=== PATIENT | male | born 1975 | race Caucasian/White ===

== ENCOUNTER → 2023-08-05 | Outpatient (REF) | payer OTHER ==
[2023-08-05 18:40] LABS: CREATININE, URINE 49.8 MG/DL; MAU/CREAT RATIO 58.2 MCG/MG (0.0-30.0)
== END ==
LOC: M LAB REF 17:28
PROVIDERS: ATTEND Nurse Practitioner Family
DX: E11.65 Type 2 diabetes mellitus with hyperglycemia (principal)

== ENCOUNTER 2023-11-09 12:52 | Emergency (ER) | payer OTHER ==
[~2023-11-09] VITALS: Ht 160 cm; Wt 99.1 kg
[2023-11-09] MEDS ORDERED: HYDR-3716 (13:27)
[2023-11-09] MEDS ORDERED: TRUL0.5I (13:27)
[2023-11-09] MEDS ORDERED: METF-838 (13:27)
[2023-11-09] MEDS ORDERED: OMEG1CAP85 (13:27)
[2023-11-09 16:25] VITALS: TEMP 98.4
[2023-11-09 17:02] LABS: BASO % 0.6 % (0.0-1.0); EOS # 0.1 10^3/uL (0.0-0.5); EOS % 1.5 % (0.0-3.0); HEMATOCRIT 48.1 % (42.0-52.0); LYMPH # 2.4 10^3/uL (1.5-5.0); LYMPH % 34.5 % (24.0-44.0); MEAN CORPUSCULAR HGB CONC 35.3 g/dl (32.0-36.5); MEAN CORPUSCULAR VOLUME 84.8 fl (80.0-96.0); MONO # 0.5 10^3/uL (0.0-0.8); MONO % 7.7 % (2.0-8.0); NEUTROPHILS # 3.8 10^3/uL (1.5-8.5); NEUTROPHILS % 55.4 % (36.0-66.0); PLATELET COUNT, AUTOMATED 174 10^3/uL (150-450); RED BLOOD COUNT 5.67 10^6/uL (4.30-6.10); WHITE BLOOD COUNT 6.9 10^3/uL (4.0-10.0)
[2023-11-09 17:22] LABS: LIPASE 38 U/L (12-53)
[2023-11-09 17:25] LABS: ALKALINE PHOSPHATASE 124 U/L (46-116); ALT/SGPT 63 U/L (7.0-40); AST/SGOT 33 U/L (<34); BILIRUBIN,DIRECT 0.2 MG/DL (<0.4); BILIRUBIN,TOTAL 0.8 MG/DL (0.3-1.2); BLOOD UREA NITROGEN 10 MG/DL (9-23); CALCIUM LEVEL 8.6 MG/DL (8.5-10.1); CARBON DIOXIDE LEVEL 28 MMOL/L (20-31); CHLORIDE LEVEL 105 MMOL/L (98-107); CK-MB VALUE MASS < 1.0 NG/ML (<3.6); CREATININE FOR GFR 0.59 MG/DL (0.70-1.30); GLOMERULAR FILTRATION RATE > 60.0 (>60); GLUCOSE, FASTING 135 MG/DL (60-100); POTASSIUM SERUM 3.8 MMOL/L (3.5-5.1); SODIUM LEVEL 139 MMOL/L (136-145); TOTAL PROTEIN 6.8 G/DL (5.7-8.2)
[2023-11-09 17:26] LABS: THYROID STIMULATING HORMONE 1.752 uIU/ML (0.55-4.78)
[2023-11-09 17:27] LABS: FREE T4 1.05 NG/DL (0.89-1.76)
[2023-11-09 17:30] LABS: INR 0.99; PARTIAL THROMBOPLASTIN TIME 26.9 SECONDS (24.8-34.2); PROTHROMBIN TIME 12.8 SECONDS (12.5-14.5)
[2023-11-09 17:39] LABS: CPK CREATINE PHOSPHOKINASE 263 U/L (46-171); MB/CK RELATIVE INDEX 0.38 (< OR =4)
[2023-11-09 18:42] VITALS: BP 165/105; O2SAT 96
[2023-11-09 18:51] LABS: CK-MB VALUE MASS < 1.0 NG/ML (<3.6)
[2023-11-09 18:52] LABS: CPK CREATINE PHOSPHOKINASE 254 U/L (46-171); MB/CK RELATIVE INDEX 0.39 (< OR =4)
[2023-11-09 18:54] VITALS: BP 165/105
[2023-11-09] MEDS ORDERED: LISI20TA33 PO (19:18)
== END 2023-11-09 20:29 | disposition home or self-care (01) ==
LOC: M ED 12:52
DX: R07.9 Chest pain, unspecified (principal); I10 Essential (primary) hypertension; E11.9 Type 2 diabetes mellitus without complications; Z79.84 Long term (current) use of oral hypoglycemic drugs; Z79.811 Long term (current) use of aromatase inhibitors; Z79.899 Other long term (current) drug therapy

== ENCOUNTER 2024-01-20 17:45 | Emergency (ER) | payer OTHER ==
[~2024-01-20] VITALS: Ht 160 cm; Wt 100.0 kg
[~2024-01-20 17:45] MED LIST: HYDR-3716; LISI20TA33 PO; METF-838 PO; OMEG1CAP85; TRUL0.5I
[2024-01-20] MEDS ORDERED: FAMO1TAB11 (18:03)
[2024-01-20] MEDS ORDERED: SEMA0.257 (18:03)
[2024-01-20] MEDS ORDERED: JARD1TAB3 (18:03)
[2024-01-20 18:24] LABS: BASO % 0.6 % (0.0-1.0); EOS # 0.1 10^3/uL (0.0-0.5); EOS % 1.7 % (0.0-3.0); HEMATOCRIT 49.5 % (42.0-52.0); HEMOGLOBIN 17.1 g/dl (13.5-17.5); LYMPH # 2.2 10^3/uL (1.5-5.0); LYMPH % 30.6 % (24.0-44.0); MEAN CORPUSCULAR HEMOGLOBIN 30.1 pg (27.0-33.0); MEAN CORPUSCULAR HGB CONC 34.5 g/dl (32.0-36.5); MEAN CORPUSCULAR VOLUME 87.1 fl (80.0-96.0); MONO # 0.6 10^3/uL (0.0-0.8); MONO % 8.4 % (2.0-8.0); NEUTROPHILS # 4.1 10^3/uL (1.5-8.5); NEUTROPHILS % 58.1 % (36.0-66.0); PLATELET COUNT, AUTOMATED 200 10^3/uL (150-450); RED BLOOD COUNT 5.68 10^6/uL (4.30-6.10); WHITE BLOOD COUNT 7.1 10^3/uL (4.0-10.0)
[2024-01-20 18:35] LABS: INR 0.96; PROTHROMBIN TIME 12.5 SECONDS (12.5-14.5)
[2024-01-20] MEDS ORDERED: ISOVUE-370 76% 100ML VIAL As Ordered ONE (19:01)
[2024-01-20 19:02] LABS: ALBUMIN 4.2 G/DL (3.2-5.2); BILIRUBIN,DIRECT 0.2 MG/DL (<0.4); BILIRUBIN,TOTAL 0.7 MG/DL (0.3-1.2); CK-MB VALUE MASS 1.2 NG/ML (<3.6); MB/CK RELATIVE INDEX 0.92 (< OR =4); TOTAL PROTEIN 6.8 G/DL (5.7-8.2)
[2024-01-20 19:39] LABS: MB/CK RELATIVE INDEX 0.7 (< OR =4)
[2024-01-20 20:20] VITALS: BP 131/89; TEMP 98; O2SAT 97
== END 2024-01-20 20:25 | disposition home or self-care (01) ==
LOC: M ED 17:45
DX: R07.89 Other chest pain (principal); E11.9 Type 2 diabetes mellitus without complications; I10 Essential (primary) hypertension; Z79.84 Long term (current) use of oral hypoglycemic drugs
CPT/HCPCS: 71045; 71275; 80047; 80076; 82550; 82553; 83690; 85025; 85610; 93005; 93041; 94760; 99283; 99285; Q9967

== ENCOUNTER → 2025-01-31 | Outpatient (CLI) | payer OTHER, SELFPAY ==
[~2025-01-31] MED LIST changes: +FAMO1TAB11; +JARD1TAB3; +OMEG-28; -OMEG1CAP85; +SEMA0.257
== END ==
LOC: M CARPUL 10:40
PROVIDERS: ATTEND Registered Nurse
DX: R07.9 Chest pain, unspecified (principal); R94.31 Abnormal electrocardiogram [ECG] [EKG]

== ENCOUNTER → 2025-04-18 | Outpatient (CLI) | payer OTHER | LOC: M CARPUL 15:32 | PROVIDERS: ATTEND Registered Nurse | DX: G47.33 Obstructive sleep apnea (adult) (pediatric) (principal); R94.31 Abnormal electrocardiogram [ECG] [EKG]; R06.02 Shortness of breath; I36.1 Nonrheumatic tricuspid (valve) insufficiency ==

== ENCOUNTER → 2025-06-06 | Outpatient (REF) | LOC: M PLAIMG 13:02 | PROVIDERS: ATTEND Internal Medicine | DX: M54.50 Low back pain, unspecified (principal) ==

== ENCOUNTER → 2025-07-24 | Outpatient (CLI) | payer OTHER | LOC: M EKG 10:25 | PROVIDERS: ATTEND Nurse Practitioner Family | DX: R00.2 Palpitations (principal); Z53.9 Procedure and treatment not carried out, unspecified reason ==